=== PATIENT | male | born 1995 | race Two or more races ===

== ENCOUNTER 2019-02-22 09:27 | Emergency (ER) | payer MEDICAID, OTHER ==
[~2019-02-22] VITALS: Ht 205.7 cm; Wt 95.7 kg
[2019-02-22 10:00] VITALS: BP 125/65
[2019-02-22] MEDS ORDERED: IBUPROFEN 800 MG TAB PO ONE (10:45)
== END 2019-02-22 10:50 | disposition home or self-care (01) ==
LOC: ER 09:30
DX: J06.9 Acute upper respiratory infection, unspecified (principal)